=== PATIENT | female | born 1975 | race Caucasian/White ===

== ENCOUNTER → 2022-09-12 14:10 | Outpatient (CLI) | payer OTHER, MEDICAID, SELFPAY ==
--- NOTE | 2022-09-12 14:19 | DI.CT.S_ITS ---
PROCEDURE: CT SINUS SCREEN WO CON INDICATIONS: CHRONIC PANSINUSITIS TECHNIQUE: Noncontrast 3.0 mm axial images acquired from the frontal sinuses to the mid-sella, with coronal and sagittal reformats. For radiation dose reduction, the following was used: automated exposure control, adjustment of mA and/or kV according to patient size. COMPARISON: None. FINDINGS: Image quality: Excellent. Maxillary Sinuses: Mucosal thickening of both maxillary sinuses measuring up to 2 mm with layering fluid in the right maxillary sinus. Postoperative changes are seen medially. Ethmoid Air Cells: Scattered air cells have mucosal thickening. Resection of the lower ethmoid air cells has been performed. Sphenoid Sinuses: No bony remodeling or destruction. Sinuses are clear. Frontal Sinuses: No bony remodeling or destruction. Sinuses are clear. Ostiomeatal Complexes: Postoperative changes seen with Miscellaneous: Visualized intra-orbital contents are normal. No ophelia bullosa or paradoxical turbinate curvature. No nasal septal deviation. IMPRESSION: 1. Postoperative changes as above. 2. Mild mucosal thickening of the maxillary sinuses and ethmoid air cells. Dictated by: Clay Jackson M.D. on 09/12/2022 at 14:50 Approved by: Clay Jackson M.D. on 09/12/2022 at 14:57
== END ==
PROVIDERS: PCP Nurse Practitioner Family; Referring Provider Otolaryngology Facial Plastic Surgery; Visit Provider Otolaryngology Facial Plastic Surgery
DX: J32.4 Chronic pansinusitis (principal)
CPT/HCPCS: 70486

== ENCOUNTER → 2023-05-09 14:14 | Outpatient (CLI) | payer OTHER, MEDICAID, SELFPAY ==
--- NOTE | 2023-05-09 | DI.MG.S_ITS ---
BILATERAL DIGITAL SCREENING MAMMOGRAM 3D/2D WITH CAD WITH AUGMENTATION: 05/09/2023 CLINICAL: Routine screening. Comparison is made to exams dated: 05/06/2021 mammogram and 04/29/2020 mammogram - outside location. Both breasts are heterogeneously dense, which may obscure small masses (category c / 51-75% glandular tissue). Current study was also evaluated with a Computer Aided Detection (CAD) system. Bilateral breast implants are intact. No significant masses, calcifications, or other findings are seen in either breast. There has been no significant interval change. IMPRESSION: NEGATIVE There is no mammographic evidence of malignancy. A 1 year screening mammogram is recommended. Based on the Tyrer Cuzick model (a risk assessment model) the patient's lifetime risk is 9.4% and her 10 year risk is 2.0%. According to the ACR, ACS, and NCCN guidelines, an annual breast MRI exam along with mammogram is recommended if the patient's lifetime risk is 20% or greater. This exam was interpreted at Station ID: [id number]. NOTE: For mammograms, a report in lay terms will be sent to the patient. Approximately 15% of breast malignancies will not be visualized mammographically. In the management of a palpable breast mass, a negative mammogram must not discourage biopsy of a clinically suspicious lesion. Electronically Signed By: Angelo [email or web address]/[email or web address]:05/09/2023 15:35:04 letter sent: Normal Exam ACR BI-RADS Category 1: Negative [id number]
== END ==
PROVIDERS: PCP Nurse Practitioner Family; Referring Provider Nurse Practitioner Family; Visit Provider Nurse Practitioner Family
DX: Z12.31 Encounter for screening mammogram for malignant neoplasm of breast (principal)
CPT/HCPCS: 77063; 77067